=== PATIENT | female | born 2005 | race Caucasian/White ===

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

== ENCOUNTER 2025-03-27 22:33 | Emergency (ER) | payer BC, SELFPAY ==
--- OUTSIDE RECORDS SUMMARY | 2025-03-27 22:35 | XMS_ITS | Clinical Summary ---
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 10 Tablet Active Social History Tobacco Use Types Packs/Day Years Used Date Smoking Tobacco: Never Assessed Interpersonal Safety Answer Date Record ed Are you being hit, kicked, p ushed or yelled at (see row info)? No 11/30/2024 Interpersonal Safety Abuse 12 - 18 Not on file 11/30/2024 Interpersonal Safety Ambulatory Vulnerability No t on file 11/30/2024 Comments No Sex and Gender Information Value Date Recorded Sex Assigned at Not on file Legal Sex Female 7:11 AM [employer] Gender Identity Not on file Sexual Orientation Not on file Last Filed Vital Signs Vital Sign Reading Time Taken Comments Blood Pressure 111/91 11/30/2024 7:15 PM [employer] Pulse 86 11/30/2024 7:15 PM [employer] Temperature 36.3 C (97.3 F) 11/30/2024 6:21 PM [employer] Respiratory Rate 16 11/30/2024 6:20 PM [employer] Oxygen Saturation 100% 11/30/2024 7:15 PM [employer] Inhaled Oxygen Concentration - - Weight 59 kg (130 lb) 11/30/2024 6:20 PM [employer] Height 180.3 cm (5' 11) 11/30/2024 6:20 PM [employer] Body Mass Index 18.13 11/30/2024 6:20 PM SR. [employer] Plan of Treatment Health Maintenance Due Date Last Done Comments Well Child Check for age 3-20 04/21/2008 Tdap 2016 Depression screening for age 12+ 2017 HIV for age 15-65 2020 HPV series for age 9-26 (1 - 3-dose series) 2020 BMI (ht and wt on same day) for age 18+ 2023 Hepatitis C screening for age 18-79 2023 Hepatitis B series for 19+ ( 1 of 3 - 19+ 3-dose series) 2024 COVID-19 vaccine series ( season) 2024 Influenza Vaccine (Season Ended) 2025 Meningococcal series for age 11-21 Aged Out No longer eligible based on patient's age to complete this topic Pneumococcal series for age 6-49 Aged Out No longer eligible based on patient's age to complete this topic Insurance [place] [id number] [employer] Care Teams Cutting And Creasing Press Operator Relationship Specialty Start Date End Date Pcp, No . PCP - General 11/30/24
--- OUTSIDE RECORDS SUMMARY | 2025-03-27 22:35 | XMS_ITS | Clinical Summary ---
Author Organization [facility] Address [address] [place] [address] Care Team Providers Care Alcohol Rubber Name Role Phone Elsewhere, Pcp Primary Care Provider Unavailabl e Source Comments Patient records contain information from all sites at [facility]. For routine questions regarding patient records, call [phone] during business hours, M-F 8:00 AM - 5:00 PM Central Time. Record requests for emergency care only can be directed to [phone] at any time.[facility] Allergies No known active allergies Medications No known medications Active Problems No known active problems Immunizations Immunization Administration Dates Next Due DTaP (Infanrix, Tripedia) 05/25/2010,05/2006,2005,2005, H1N1 All Forms 10/03/2009 HepA Pediatric/Adolescent 06/20/2007,11/23/2006 HepB Pediatric/Adolescent 07/22/2006,2005, 2005 Hib (PRP-T) (ACTHIB, HIBERIX) 08/24/2006, 005,2005 IPV 05/25/2010,2005,2005 ,2005 Influenza, Unspecified 09/23/2008,08/29/2007,05/2006 MMR 05/25/2010,05/25/2006 PCV13 05/25/2006,2005,2005 ,2005 SANDRA 05/25/2010,08/24/2006 Social History Tobacco Use Types Packs/Day Years Used Date Smoking Tobacco: Never Assessed Dental Answer Date Recorded Dental: Regular Dentist Unknown 06/06/20 22 Comments Unknown Sex and Gender Information Value Date Recorded Sex Assigned at Not on file Legal Sex Female 2:58 PM CORE 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 Gender Identity Not on file Sexual Orientation Not on file Last Filed Vital Signs Vital Sign Reading Time Taken Comments Blood Pressure 126/80 06/06/2022 2:42 PM CDT Pulse 84 06/06/2022 2:42 PM CDT Temperature 36.5 C (97.7 F) 06/06/2022 2:42 PM CDT Respiratory Rate 16 06/06/2022 2:42 PM CDT Oxygen Saturation 100% 06/06/2022 2:42 PM CDT Inhaled Oxygen Concentration - - Weight 61.2 kg (134 lb 14.7 oz) 06/06/2022 2:43 PM CDT Height 122.1 cm (4' 0.07) 03/17/2011 2:27 PM CD T Body Mass Index - - Plan of Treatment Health Maintenance Due Date Last Done Comments Anemia/Iron Deficiency Scree bridget During Well Child Visit (if High Risk Menstruating Female) 2005 Chlamydia and Gonorrhea Screening 2005 HIV Screening 2005 Hepatitis C Screening 2005 TB Screening during Well Chi ld Visit 2005 1 week Well Child Check-Up 2005 1 month Well Child Check-Up 2005 2 month Well Child Check-Up 2005 4 month Well Child Check-Up 2005 9 month Well Child Check-Up 01/20/2006 15 month Well Child Check-Up 07/22/2006 18 month Well Child Check-Up 10/22/2006 2 year Well Child Check-Up 04/21/2007 30 month Well Child Check-Up 10/22/2007 3 year Well Child Check-Up 04/21/2008 Well Child Check-Up Complete d in Past Year 04/21/2008 5 year Well Child Check-Up 04/21/2010 6 year Well Child Check-Up 04/21/2011 7 year Well Child Check-Up 04/21/2012 8 year Well Child Check-Up 04/21/2013 10 year Well Child Check-Up 04/21/2015 12 year Well Child Check-Up 04/21/2017 13 year Well Child Check-Up 04/21/2018 HPV Vaccines (2 - 2-dose series) 12/06/2018 06/05/20 18 14 year Well Child Check-Up 04/21/2019 Vision Screening during Well Child Visit 2019 15 year Well Child Check-Up 04/21/2020 17 year Well Child Check-Up 04/21/2022 18 year Well Child Check-Up 04/21/2023 19 year Well Child Check-Up 04/21/2024 Well Child Check-Up ([facility]) 04/21/2024 COVID-19 Vaccine (1 - 2023-2 5 season) 2024 Influenza Vaccine (#1) 2024 , 08/03/2019, 07/18/2018, Additional history exists Depression Screening (Annual PHQ-2) 10/17/2024 DTaP,Tdap,and Td Vaccines (7 - Td or Tdap) 05/23/2025 05/23/2015, 05/25/2010, 05/25/2010, Additional history exists Pneumococcal vaccine (0-49 years) Completed 05/25/2006, 2005, 2005, Additional history exists Hepatitis B Vaccines Completed 07/22/2006, 2005, 2005, Additional history exists IPV Vaccines Completed 05/25/2010, 06/2010, 2005, Additional history exists MMR Vaccines Completed 05/25/2010, 05/25/2006 Varicella Vaccines Completed 05/25/2010, 08/24/2006 Meningococcal Vaccine Completed 06/02/2021 Insurance [place] [id number] [facility] [place] [address] ([place] [address] [facility] Care Teams Alcohol Rubber Relationship Specialty Start Date End Date Elsewhere, Pcp PCP - General Internal Medicine 06/06/22
[2025-03-27 22:42] VITALS: BP 130/84; PULSE 74; RESP 18; TEMP 36.9; O2SAT 99; BMI 20.9
--- NOTE | 2025-03-27 22:51 | ED_ITS ---
HPI - General Adult General Date Seen: 03/27/25 Chief complaint: Chest Pain Stated complaint: chest pain Time Seen by Provider: 03/27/25 22:51 History of Present Illness HPI narrative: 19-year-old female presenting to the ER today with chest pain. She is generally healthy. She has no history of heart or lung disease. No history of asthma. No known history of GERD but does have a family history of GERD and actually her father just had an endoscopy a couple of days ago. She does endorse a history of anxiety. She is not currently on any treatment for. Started late this morning around 11:30 a.m. today. The pains been fairly continuous all afternoon but has been fluctuating. Sometimes it gets bad in sudden spells. Sometimes it feels like it is squeezing and sometimes it feels like a rib cages caving in. Mostly it feels like burning and cold. She notes that the pain is worse when she tries to follow up, especially when food hits the lower portion of her esophagus. She is not having any food stuck in her esophagus. No vomiting. No abdominal pain. No back pain. No other symptoms with it. No cough. No shortness of breath. No nausea. No fever. No swelling in her legs. No recent travel or immobilization. No history of DVT or PE. No family history of coagulopathy. She does not take control pills. Related Data Previous Rx's ?Medication ?Instructions ?Recorded omeprazole 40 mg capsule,delayed 40 mg PO DAILY #20 ca ps 03/28/25 release sucralfate 100 mg/mL oral 5 ml PO QID #200 mL 03/28/25 suspension (Carafate) Allergies Allergy/AdvReac Type Severity Reaction Status Date / Time No Known Drug Allergies Allergy Verified 03/27/25 22:45 [facility] Medical History (Updated 03/28/25 @ 00:17 by Sb Barajas MD) No significant past medical history Surgical History (Updated 03/27/25 @ 23:02 by Geoff Rachel RN) No significant past surgical history Social History Smoking Status: Never smoker Second hand tobacco smoke exposure: No How often do you have a drink containing alcohol: never AUDIT-C Alcohol total score: 0 Non-prescribed substance use: denies use Exam Narrative: Exam Narrative: Constitutional: Appears well-developed and well-nourished. Alert. Conversant. Non toxic. HENT: Head: Atraumatic. Nose: Nose normal. Mouth/Throat: Oral mucosa is clear and moist. no trismus. Pharynx normal. Eyes: Conjunctivae normal. EOM normal. Pupils equal, round, and reactive to light. No scleral icterus. Neck: Normal range of motion. Neck supple. No tracheal deviation present. No JVD Cardiovascular: Normal rate, regular rhythm. No gallop. No friction rub. No murmur heard. Symmetric radial and PT artery pulses Pulmonary/Chest: Effort normal. No stridor. No respiratory distress. No wheezes. No rales. No rhonchi . No tenderness. Abdominal: Soft. Bowel sounds normal. No distension. No mass. No tenderness. No rebound. No guarding. Musculoskeletal: RUE: Normal range of motion. No tenderness. No deformity LUE: Normal range of motion. No tenderness. No deformity RLE: Normal range of motion. No edema. No tenderness. No deformity LLE: Normal range of motion. No edema. No tenderness. No deformity Neurological: Alert and oriented to person, place, and time. Normal strength. CN II-VII intact. No sensory deficit. GCS eye subscore is 4. GCS verbal subscore is 5. GCS motor subscore is 6. Normal coordination Skin: Skin is warm and dry. No rash noted. No pallor. Normal capillary refill. Psychiatric: Normal mood. Normal affect. Const: Vital Signs, click to edit/add: Vital Signs - 24 hr 03/27/25 22:42 03/28/25 00:59 03/28/25 01:04 Temperature 98.5 F 98.5 F 98.5 F Pulse Rate [Right Pulse Oximeter] 74 70 70 Respiratory Rate 18 18 18 Blood Pressure [Ri ght Upper Arm] 130/84 124/74 124/74 Pulse Oximetry 99 99 Oxygen Delivery Me thod Room Air Room Air Course Vital Signs Vital signs: Initial Vital Signs Respiratory Effort Normal, Spontaneous, Non-Labored 03/27/25 22:38 Respiratory Depth Normal 03/27/25 22:38 Respiratory Pattern Normal 03/27/25 22:38 Vital Signs Temperature 98.5 F 03/27/25 22:42 Pulse Rate 74 03/27/25 22:42 Respiratory Rate 18 03/27/25 22:42 Blood Pressure 130/84 03/27/25 22:42 Pulse Oximetry 99 03/27/25 22:42 Oxygen Delivery Method Room Air 03/27/25 22:42 Temperature 98.5 F 03/28/25 01:04 Pulse Rate 70 03/28/25 01:04 Respiratory Rate 18 03/28/25 01:04 Blood Pressure 124/74 03/28/25 01:04 Pulse Oximetry 99 03/28/25 00:59 Oxygen Delivery Method Room Air 03/28/25 00:59 Medications Administered Medications: Discontinued Medications Generic Name Dose Route Start Last Admin Trade Name Freq PRN Reason Stop Dose Admin Lidocaine/Aluminum/Magnesium/Simeth 30 ml 03/27/25 23:05 03/27/25 23:13 Gi Cocktail (Visc Lido/Antacid) 30 Ml PO 03/27/25 23:06 30 ml ONCE ONE Administration Medical Decision Making MDM Narrative Medical decision making narrative: This patient presents to the ER today for evaluation of chest pain that started about 11 30 this morning while she was eating a salad for lunch. Differential was broad. No evidence of palpitations, syncope or other cardiac dysrhythmia. We considered possible ACS, however workup with EKG given her young age and lack of cardiac risk factors I do not think she needs troponin testing. EKG shows no evidence for pericarditis. Clinical presentation not suggestive of myocarditis. Chest x-ray shows no evidence for pneumonia, pneumothorax, pulmonary edema, pleural effusion, rib fracture, cardiomegaly. Mediastinum is normal on the x-ray. The patient has no ripping or tearing pain through to the back and has symmetric pulses on exam, no other acute neuro findings so I doubt aortic dissection. Risk of radiation and contrast exposure would outweigh the benefit of CT angiogram. We considered PE for this patient. She is overall low risk. She is negative by PERC. Therefore will hold off on D-dimer testing. No wheezing or bronchospasm to suggest COPD/asthma. No signs of chest wall cellulitis, shingles, injury. Based on the patient's description of pain with eating and then pain with swallowing I suspect this is probably esophagitis. Also there may be some underlay of anxiety that amplified and worsened her symptoms. With reasonable clinical confidence, I think the patient is safe for outpatient follow up. Discussed return precautions. Questions answered. Patient voices comfort with the plan. Imaging Data Chest x-ray: Attestation: I have reviewed the pertinent imaging results. Radiologist's impression: FINDINGS: Cardiovascular and mediastinum: Heart size and vasculature are normal in caliber and appearance. Lungs and pleural spaces: Lungs are clear. No sign of infiltrate or mass. No sign of pleural effusion. No pneumothorax. Bones and soft tissues: No significant findings. IMPRESSION: No acute or significant findings. ECG Data Attestation: I personally reviewed and interpreted this ECG as follows: Interpretation: Normal sinus rhythm Rate: 66 KS: 128 QRS axis: Normal axis ST segment/T wave: Nonspecific T-wave flattening. No ST segment elevation or depression. QTc: 425 Discharge Plan Discharge Clinical Impression: Chest pain, Esophagitis Patient Disposition: Home, Self-Care Condition: Stable Instructions: Chest Pain (ED), Esophagitis (ED) Additional Instructions: As we discussed, your chest x-ray and EKG look very good tonight. Right now we suspect that your pain is probably being caused by acid lockett in your esophagus. Remember, the only way to know this for sure would be to have an endoscopy (camera down 3 your esophagus). However, monitor your symptoms carefully and if they get worse return to the ER right away. Please start on the stomach acid medicine tomorrow. Use the omeprazole once every day for the next week or so. Use the Carafate as needed to help treat symptoms. Please follow-up with your regular doctor for recheck within the next 3-5 days. Ask your regular doctor to order a test for Helicobacter pylori. Prescriptions: New omeprazole 40 mg capsule,delayed release(DR/EC) 40 mg PO DAILY Qty: 20 2RF sucralfate [Carafate] 100 mg/mL suspension 5 ml PO QID Qty: 200 0RF Rx Instructions: swish in mouth and swallow; use after food/drink Follow Up/Referrals: Provider,Not a Local [Primary Care Provider, Family Practice] Stand Alone Forms: [employer] Info Instructions
--- NOTE | 2025-03-27 23:05 | CRLHL7_ITS ---
For Patients: As a result of the Century Cures Act, medical imaging exams and procedure reports are released immediately into your electronic medical record. You may view this report before your referring provider. If you have questions, please contact your health care provider. INDICATION: Chest pain. TECHNIQUE: Chest 2 views. COMPARISON: None. FINDINGS: Cardiovascular and mediastinum: Heart size and vasculature are normal in caliber and appearance. Lungs and pleural spaces: Lungs are clear. No sign of infiltrate or mass. No sign of pleural effusion. No pneumothorax. Bones and soft tissues: No significant findings. IMPRESSION: No acute or significant findings. Dictated by Moses Conrad MD @ 03/27/2025 11:34:50 PM (Electronically Signed)
[2025-03-27] MEDS: GI COCKTAIL (VISC LIDO/ANTACID) 30 ML PO (23:13)
[2025-03-28 00:59] VITALS: BP 124/74; PULSE 70; RESP 18; TEMP 36.9; O2SAT 99
[2025-03-28 01:04] VITALS: BP 124/74; PULSE 70; RESP 18; TEMP 36.9
== END 2025-03-28 01:05 | disposition home or self-care (01) ==
PROVIDERS: Emergency Provider Emergency Medicine
DX: R07.9 Chest pain, unspecified (principal); K20.90 Esophagitis, unspecified without bleeding
CPT/HCPCS: 71046; 93005; 99284; A9270